=== PATIENT | female | born 1990 | race American Indian/Alaskan Native ===

== ENCOUNTER 2016-10-01 13:37 | Emergency (ER) | payer BC ==
[2016-10-01 15:27] LABS: Bilirubin,Urine NEG (Negative); Blood,Urine MOD (Negative); Ketones,Urine NEG (Negative); Leukocyte Esterase,Urine NEG (Negative); Mucus,Urine FEW /HPF; Nitrite,Urine NEG (Negative); Protein,Urine <15 mg/dL mg/dL (Negative); Urobilinogen,Urine < 2.0 mg/dL (<2.0); WBC,Urine < 1.0 /HPF (0.0-6.0)
[2016-10-01 15:34] LABS: White Blood Count 3.6 K/mm3 (4.5-11.0)
[2016-10-01 15:35] LABS: Basophils % (Auto) 0.5 % (0.0-1.8); Eosinophils % (Auto) 1.8 % (0.0-4.3); Hematocrit 44.8 % (30.3-42.9); Hemoglobin 15.2 gm/dl (10.1-14.3); Mean Corpuscular HGB Conc 34 % (30-34); Mean Corpuscular Hemoglobin 33 pg (28-32); Mean Corpuscular Volume 95 fl (79-97); Platelet Count 221 K/mm3 (140-440); Red Cell Distribution Width 13.3 % (13.2-15.2)
--- NOTE | 2016-10-01 18:57 | Ultrasound Report ---
FINAL REPORT EXAM: US OB TRANSVAGINAL HISTORY: bleeding TECHNIQUE: Endovaginal ultrasound was performed in multiple grayscale sonographic images were obtained of the uterus and adnexa. PRIORS: None. FINDINGS: There is a gestational sac in the uterus that measures approximately 17 millimeters in diameter. Yolk sac is identified. There is a structure adjacent to the yolk sac which may represent pole that measures approximately 1 millimeter in length. No heart tones were detected during the exam. Right and left ovary measure approximately 4.8 x 2.1 x 2.8 centimeters and 1.9 x 1.1 x 2 centimeters, respectively. There is a heterogeneous focus in the right ovary that measures approximately 2.2 x 1.5 centimeters which may represent corpus luteum. IMPRESSION: 1. Gestational sac with yolk sac is identified in the uterus. There is 1 millimeter structure adjacent to the yolk sac which may represent pole. No heart tones were detected during the exam. This could be secondary to early gestational age, but possibility of failed is not excluded. A short-term interval follow-up exam can be performed to assess viability.
--- NOTE | 2016-10-01 18:57 | Ultrasound Report ---
FINAL REPORT EXAM: US OB \T\lt; = 14 WEEKS FETUS HISTORY: bleeding TECHNIQUE: Transabdominal and endovaginal ultrasound was performed in multiple grayscale sonographic images were obtained of the uterus and adnexa. PRIORS: None. FINDINGS: The uterus measures approximately 8.9 x 4.2 x 5.2 centimeters. There is a gestational sac in the uterus that measures approximately 17 millimeters in diameter. Yolk sac is identified. There is a structure adjacent to the yolk sac which may represent pole that measures approximately 1 millimeter in length. No heart tones were detected during the exam. Right and left ovary measure approximately 4.8 x 2.1 x 2.8 centimeters and 1.9 x 1.1 x 2 centimeters, respectively. There is a heterogeneous focus in the right ovary that measures approximately 2.2 x 1.5 centimeters which may represent corpus luteum. IMPRESSION: 1. Gestational sac with yolk sac is identified in the uterus. There is 1 millimeter structure adjacent to the yolk sac which may represent pole. No heart tones were detected during the exam. This could be secondary to early gestational age, but possibility of failed is not excluded. A short-term interval follow-up exam can be performed to assess viability.
--- NOTE | 2016-10-01 22:22 | Emergency Department Report ---
ED Female HPI - General Chief complaint: Vaginal Bleeding Stated complaint: APPROX 5 WKS PREG/BLEEDING/CRAMPING Time Seen by Provider: 10/01/16 22:21 Source: patient Mode of arrival: Ambulatory Limitations: No Limitations - History of Present Illness Initial comments: This is a 26-year-old female. She is previously known to me. Reports a past medical history of Sjogren's syndrome, not currently on any immune modulating medication, 2, para 0, history of spontaneous miscarriage. Presents to the ER with a few days of abdominal cramping, vaginal bleeding. No exacerbating or relieving factors, no trauma, no irritative or obstructive urinary symptoms. MD Complaint: vaginal bleeding -: Gradual Location: suprapubic Severity: mild Quality: cramping Consistency: intermittent Improves with: none Worsens with: none Associated Symptoms: vaginal bleeding, abdominal pain, nausea/vomiting. denies : vaginal discharge, dysuria - Related Data Sexually active: Yes Previous Rx's Medication Instructions Recorded Last Taken Type Hyoscyamine Subl [Levsin Sl] 0.125 mg SL Q4HR PRN #15 tablet 06/04/14 Unknown Rx Ondansetron [Zofran Odt] 4 mg PO Q6H PRN #15 tab.rapdis 06/04/14 Unknown Rx Acetaminophen/Codeine [Tylenol #3] 1 tab PO Q6H PRN #20 tab 01/18/15 Unknown Rx Allergies Allergy/AdvReac Type Severity Reaction Status Date / Time No Known Allergies Allergy Verified 01/24/13 02:13 ED Review of Systems ROS: Stated complaint: APPROX 5 WKS PREG/BLEEDING/CRAMPING Other details as noted in HPI Constitutional: denies: fever Eyes: denies: eye discharge ENT: denies: epistaxis Respiratory: denies: cough Cardiovascular: denies: chest pain Gastrointestinal: abdominal pain Genitourinary: abnormal menses Musculoskeletal: denies: back pain Skin: denies: lesions Neurological: denies: confusion Psychiatric: anxiety ED Past Medical Hx - Past Medical History Additional medical history: Sjogrens - Surgical History Past Surgical History?: No - Social History Smoking Status: Former Smoker Substance Use Type: None - Medications Home Medications: Home Medications Medication Instructions Recorded Confirmed Last Taken Type Hyoscyamine Subl [Levsin Sl] 0.125 mg SL Q4HR PRN #15 tablet 06/04/14 Unknown Rx Ondansetron [Zofran Odt] 4 mg PO Q6H PRN #15 tab.rapdis 06/04/14 Unknown Rx Acetaminophen/Codeine [Tylenol #3] 1 tab PO Q6H PRN #20 tab 01/18/15 Unknown Rx ED Physical Exam - General Limitations: No Limitations General appearance: alert, in no apparent distress - Head Head exam: Present: atraumatic, normocephalic - Eye Eye exam: Present: normal appearance - ENT ENT exam: Present: normal exam, normal orophraynx, mucous membranes moist, normal external ear exam - Neck Neck exam: Present: normal inspection, full ROM. Absent: tenderness, meningismus - Respiratory Respiratory exam: Present: normal lung sounds bilaterally. Absent: respiratory distress, wheezes, rales, rhonchi, stridor, chest wall tenderness, accessory muscle use, decreased breath sounds, prolonged expiratory - Cardiovascular Cardiovascular Exam: Present: regular rate, normal rhythm, normal heart sounds. Absent: bradycardia, tachycardia, irregular rhythm, systolic murmur, diastolic murmur, rubs, gallop - GI/Abdominal GI/Abdominal exam: Present: soft, normal bowel sounds. Absent: distended, tenderness, guarding, rebound, rigid, pulsatile mass - External exam: Present: normal external exam Speculum exam: Present: normal speculum exam, vaginal bleeding Bi-manual exam: Present: normal bi-manual exam, other (escorted by nurse ALMAZ CARL). Absent: cervical motion tendernes, adnexal tenderness, adnexal mass - Extremities Exam Extremities exam: Present: normal inspection, full ROM, normal capillary refill. Absent: tenderness, pedal edema, joint swelling, calf tenderness - Back Exam Back exam: Present: normal inspection, full ROM. Absent: tenderness, CVA tenderness (R), CVA tenderness (L), muscle spasm, paraspinal tenderness, vertebral tenderness - Neurological Exam Neurological exam: Present: alert, oriented X3, normal gait, other (Extraocular movements intact. Tongue midline. No facial droop. Facial sensation intact to light touch in the V1, V2, V3 distribution bilaterally. 5 and 5 strength in 4 extremities.. Sensation is intact to light touch in 4 extremities.). Absent : motor sensory deficit - Psychiatric Psychiatric exam: Present: normal affect, normal mood - Skin Skin exam: Present: warm, dry, intact, normal color. Absent: rash ED Course Vital Signs 10/01/16 10/01/16 10/01/16 14:34 21:55 22:00 Temperature 98.4 F Pulse Rate 80 Respiratory 20 Rate Blood Pressure 120/76 111/69 Blood Pressure [Right] O2 Sat by Pulse 99 99 98 Oximetry 10/01/16 10/01/16 10/01/16 22:05 22:20 22:27 Temperature 98.3 F Pulse Rate Respiratory 18 Rate Blood Pressure 111/64 Blood Pressure [Right] O2 Sat by Pulse 99 100 Oximetry 10/01/16 10/01/16 10/01/16 22:40 23:00 23:26 Temperature 98.2 F Pulse Rate 82 Respiratory 18 Rate Blood Pressure 118/65 114/71 Blood Pressure 114/71 [Right] O2 Sat by Pulse 100 100 Oximetry ED Medical Decision Making - Lab Data Result diagrams: 10/01/16 14:52 Vital Signs 10/01/16 10/01/16 10/01/16 14:34 21:55 22:00 Temperature 98.4 F Pulse Rate 80 Respiratory 20 Rate Blood Pressure 120/76 111/69 O2 Sat by Pulse 99 99 98 Oximetry 10/01/16 10/01/16 10/01/16 22:05 22:20 22:27 Temperature 98.3 F Pulse Rate Respiratory 18 Rate Blood Pressure 111/64 O2 Sat by Pulse 99 100 Oximetry 10/01/16 10/01/16 22:40 23:00 Temperature Pulse Rate Respiratory Rate Blood Pressure 118/65 114/71 O2 Sat by Pulse 100 100 Oximetry Lab Results 10/01/16 10/01/16 10/01/16 Range/Units 14:52 14:52 14:52 WBC 3.6 L (4.5-11.0) K/mm3 RBC 4.70 (3.65-5.03) M/mm3 Hgb 15.2 H (10.1-14.3) gm/dl Hct 44.8 H (30.3-42.9) % MCV 95 (79-97) fl MCH 33 H (28-32) pg MCHC 34 (30-34) % RDW 13.3 (13.2-15.2) % Plt Count 221 (140-440) K/mm3 Lymph % (Auto) 40.8 H (13.4-35.0) % [place] % (Auto) 8.0 H (0.0-7.3) % Eos % (Auto) 1.8 (0.0-4.3) % Baso % (Auto) 0.5 (0.0-1.8) % Lymph # 1.4 (1.2-5.4) K/mm3 [place] # 0.3 (0.0-0.8) K/mm3 Eos # 0.1 (0.0-0.4) K/mm3 Baso # 0.0 (0.0-0.1) K/mm3 Seg Neutrophils % 48.9 (40.0-70.0) % Seg Neutrophils # 1.7 L (1.8-7.7) K/mm3 HCG, Quant 53541 H (0-4) mIU/mL Urine Color (Yellow) Urine Turbidity (Clear) Urine pH (5.0-7.0) Ur Specific [place] (1.003-1.030) Urine Protein (Negative) mg/dL Urine Glucose (UA) (Negative) mg/dL Urine Ketones (Negative) mg/dL Urine Blood (Negative) Urine Nitrite (Negative) Urine Bilirubin (Negative) Urine Urobilinogen (<2.0) mg/dL Ur Leukocyte Esterase (Negative) Urine WBC (Auto) (0.0-6.0) /HPF Urine RBC (Auto) (0.0-6.0) /HPF U Epithel Cells (Auto) (0-13.0) /HPF Urine Mucus /HPF Blood Type A POSITIVE Antibody Screen Negative 10/01/16 Range/Units 15:00 WBC (4.5-11.0) K/mm3 RBC (3.65-5.03) M/mm3 Hgb (10.1-14.3) gm/dl Hct (30.3-42.9) % MCV (79-97) fl MCH (28-32) pg MCHC (30-34) % RDW (13.2-15.2) % Plt Count (140-440) K/mm3 Lymph % (Auto) (13.4-35.0) % [place] % (Auto) (0.0-7.3) % Eos % (Auto) (0.0-4.3) % Baso % (Auto) (0.0-1.8) % Lymph # (1.2-5.4) K/mm3 [place] # (0.0-0.8) K/mm3 Eos # (0.0-0.4) K/mm3 Baso # (0.0-0.1) K/mm3 Seg Neutrophils % (40.0-70.0) % Seg Neutrophils # (1.8-7.7) K/mm3 HCG, Quant (0-4) mIU/mL Urine Color Straw (Yellow) Urine Turbidity Clear (Clear) Urine pH 6.0 (5.0-7.0) Ur Specific [place] 1.006 (1.003-1.030) Urine Protein <15 mg/dl (Negative) mg/dL Urine Glucose (UA) Neg (Negative) mg/dL Urine Ketones Neg (Negative) mg/dL Urine Blood Mod (Negative) Urine Nitrite Neg (Negative) Urine Bilirubin Neg (Negative) Urine Urobilinogen < 2.0 (<2.0) mg/dL Ur Leukocyte Esterase Neg (Negative) Urine WBC (Auto) < 1.0 (0.0-6.0) /HPF Urine RBC (Auto) 2.0 (0.0-6.0) /HPF U Epithel Cells (Auto) 2.0 (0-13.0) /HPF Urine Mucus Few /HPF Blood Type Antibody Screen - Radiology Data Radiology results: report reviewed, image reviewed Obstetrics ultrasound demonstrates a gestational sac noted in the uterus, no heart tones noted, failed versus early threatened miscarriage or both a possibility. Heterogeneous focus in the right ovary may represent corpus luteum. - Medical Decision Making Differential diagnosis: Inevitable miscarriage, threatened miscarriage Assessment and plan: 26-year-old female with Sjogren syndrome, who is 2 , para 1, history of one spontaneous miscarriage in the past, with vaginal bleeding and cramping. Intrauterine is noted, no heart tones are noted, findings are concerning for either threatened miscarriage or early miscarriage. Patient is going to continue bed rest, she is instructed to follow up with outpatient [facility]. She follows with [facility]. She denies irritative and obstructive urinary symptoms, her abdomen is soft and benign, her gynecologic exam is benign, and hemoglobin and hematocrit are appropriate. The patient is Rh+, therefore does not require RhoGAM therapy. Critical care attestation.: If time is entered above; I have spent that time in minutes in the direct care of this critically ill patient, excluding procedure time. ED Disposition Clinical Impression: Miscarriage Disposition: DC-01 TO HOME OR SELFCARE Is pt being admited?: No Does the pt Need Aspirin: No Condition: Stable Instructions: Spontaneous Miscarriage (ED) Additional Instructions: Rest and avoid heavy lifting. Avoid strenuous physical activity. Follow-up with [facility] within the next 5-7 days. Bleeding and cramping will continue. Return to the ER right away with new pain, worsened pain, migration, fevers, chills, confusion, lethargy, irritability, projectile vomiting, change in mental status, dizziness, lightheadedness, passing out, inability to tolerate liquid feeds. Referrals: PRIMARY CARE, [Primary Care Provider] - 3-5 Days [facility] [Provider Group] - 3-5 Days [facility] [Provider Group] - 3-5 Days [facility] [Provider Group] - 3-5 Days Forms: Work/School Release Form(ED)
[2016-10-01 23:11] VITALS: BP 114/71
== END 2016-10-01 23:26 | disposition home or self-care (01) ==
LOC: ED 13:37
DX: O03.9 Complete or unspecified spontaneous abortion without complication (principal); Z3A.01 Less than 8 weeks gestation of pregnancy; Z87.891 Personal history of nicotine dependence
CPT/HCPCS: 36415; 76801; 76817; 81001; 84702; 85025; 86850; 86900; 86901